=== PATIENT | male | born 1960 | race Caucasian/White ===

== ENCOUNTER 2017-08-15 11:53 | Inpatient (IN) | payer OTHER ==
[~2017-08-15] VITALS: Ht 175.3 cm; Wt 102.0 kg
[2017-08-15 11:55] VITALS: BP 163/72; PULSE 120; RESP 16; TEMP 99.8; O2SAT 98
--- NOTE | 2017-08-15 14:12 | PD ---
HPI Chief Complaint: Medical Clearance Time Seen by Provider: 13:43 Travel History International Travel<30 days: Yes Contact w/Intl Traveler<30days: Yes Name of Country Traveled to: [place] Traveled to known affect area: No History of Present Illness HPI 57 years old male complains of headache, body ache, abdominal pain, nausea vomiting, generalized malaise and weakness. Patient states that the symptoms started yesterday afternoon. Patient started with abdominal pain, nausea vomiting. Patient states the pain is cramping pain and sharp pain localized to left low quadrant of the abdomen. Patient denies any pain radiation. Patient denies any blood in the vomitus. Patient denies any diarrhea. Patient started having headache and generalized malaise and weakness since last night. Patient stated headache aching headache frontal headache and bitemporal area. Patient denies any visual change. Patient denies any neck pain. Patient states that it is hard to focus. Patient denies any chest pain or shortness of breath. Patient denies any dysuria or frequency. Patient denies any back pain. Patient states that he has mild intermittent headache in the past however is worse than usual. Patient states that is not the worse headache he has in his life. Patient also complains of infected lesion of right side of face for the past several days. PFSH Social History Tobacco Use: No Allergies-Medications (Allergen,Severity, Reaction): Coded Allergies: No Known Allergies (Unverified , 08/15/17) Reported Meds & Prescriptions Reported Meds & Active Scripts Active Reported Lisinopril 2.5 Mg Tab 2.5 Mg PO DAILY Review of Systems General / Constitutional: No: Fever Eyes: No: Visual changes HENT: Positive: Headaches Cardiovascular: No: Chest Pain or Discomfort Respiratory: No: Shortness of Breath Gastrointestinal: Positive: Nausea, Vomiting, Abdominal Pain Genitourinary: No: Dysuria Musculoskeletal: No: Pain Skin: No Rash Neurologic: No: Weakness Psychiatric: No: Depression Endocrine: No: Polydipsia Hematologic/Lymphatic: No: Easy Bruising Physical Exam Narrative GENERAL: Well-nourished, well-developed patient. SKIN: Focused skin assessment warm/dry. Patient has an area redness swelling tenderness right-sided cheek area. No induration noted. HEAD: Normocephalic. EYES: No scleral icterus. No injection or drainage. Pupils 2 mm equal reactive. NECK: Supple, trachea midline. No JVD or lymphadenopathy. No meningismus CARDIOVASCULAR: Regular rate and rhythm without murmurs, gallops, or rubs. RESPIRATORY: Breath sounds equal bilaterally. No accessory muscle use. GASTROINTESTINAL: Abdomen soft, nondistended. Patient has moderate tenderness on palpation left lower quadrant of the abdomen. No rebound tenderness. No mass. MUSCULOSKELETAL: No cyanosis, or edema. BACK: Nontender without obvious deformity. No CVA tenderness. Neurologic exam: Patient's awake and alert oriented 3. Patient moves all extremity well. No obvious focal neurological deficit. Data Data Last Documented VS Vital Signs Date Time Temp Pulse Resp B/P (MAP) Pulse Ox O2 Delivery O2 Flow Rate FiO2 08/15/17 14:30 98 08/15/17 11:55 99.8 120 16 Orders Orders Electrocardiogram (08/15/17 14:01) Complete Blood Count With Diff (08/15/17 14:01) Comprehensive Metabolic Panel (08/15/17 14:01) Creatine Kinase (Cpk) (08/15/17 14:01) Troponin I (08/15/17 14:01) Prothrombin Time / Inr (Pt) (08/15/17 14:01) Act Partial Throm Time (Ptt) (08/15/17 14:01) Blood Culture (08/15/17 14:01) C-Reactive Protein (Crp) (08/15/17 14:01) Urinalysis - C+S If Indicated (08/15/17 14:01) W[place]gren Sedimentation Rate (08/15/17 14:01) Thyroid Stimulating Hormone (08/15/17 14:01) Influenzae A/B Antigen (08/15/17 14:01) Chest, Single Ap (08/15/17 14:01) Ct Brain W/O Iv Contrast(Rout) (08/15/17 14:01) Iv Access Insert/Monitor (08/15/17 14:01) Ecg Monitoring (08/15/17 14:01) Oximetry (08/15/17 14:01) Lactic Acid (08/15/17 14:01) Sodium Chlor 0.9% 1000 Ml Inj (Ns 1000 M (08/15/17 14:15) Ondansetron Inj (Zofran Inj) (08/15/17 14:15) Ct Abd/Pel W Iv Contrast(Rout) (08/15/17 14:04) Morphine Inj (Morphine Inj) (08/15/17 14:30) Piperacil-Tazo 3.375 Gm Premix (Zosyn 3. (08/15/17 15:15) Ondansetron Inj (Zofran Inj) (08/15/17 16:30) Iohexol 350 Inj (Omnipaque 350 Inj) (08/15/17 16:45) Admit Order (Ed Use Only) (08/15/17 17:34) Labs Laboratory Tests Test 08/15/17 14:10 White Blood Count 7.3 TH/MM3 Red Blood Count 5.07 MIL/MM3 Hemoglobin 13.5 GM/DL Hematocrit 41.0 % Mean Corpuscular Volume 80.9 FL Mean Corpuscular Hemoglobin 26.7 PG Mean Corpuscular Hemoglobin Concent 33.0 % Red Cell Distribution Width 16.9 % Platelet Count 212 TH/MM3 Mean Platelet Volume 8.6 FL Neutrophils (%) (Auto) 91.1 % Lymphocytes (%) (Auto) 3.9 % Monocytes (%) (Auto) 4.5 % Eosinophils (%) (Auto) 0.2 % Basophils (%) (Auto) 0.3 % Neutrophils # (Auto) 6.6 TH/MM3 Lymphocytes # (Auto) 0.3 TH/MM3 Monocytes # (Auto) 0.3 TH/MM3 Eosinophils # (Auto) 0.0 TH/MM3 Basophils # (Auto) 0.0 TH/MM3 CBC Comment DIFF FINAL Differential Comment Erythrocyte Sedimentation Rate 37 mm/hr Prothrombin Time 10.2 SEC Prothromb Time International Ratio 1.0 RATIO Activated Partial Thromboplast Time 27.6 SEC Urine Color YELLOW Urine Turbidity HAZY Urine pH 5.0 Urine Specific [place] 1.030 Urine Protein 30 mg/dL Urine Glucose (UA) NEG mg/dL Urine Ketones 10 mg/dL Urine Occult Blood NEG Urine Nitrite NEG Urine Bilirubin NEG Urine Urobilinogen LESS THAN 2.0 MG/DL Urine Leukocyte Esterase NEG Urine RBC 1 /hpf Urine WBC 3 /hpf Urine Bacteria RARE /hpf Urine Mucus FEW /lpf Microscopic Urinalysis Comment CULT NOT INDICATED Blood Urea Nitrogen 25 MG/DL Creatinine 1.05 MG/DL Random Glucose 101 MG/DL Total Protein 8.2 GM/DL Albumin 4.1 GM/DL Calcium Level 9.1 MG/DL Alkaline Phosphatase 66 U/L Aspartate Amino Transf (AST/SGOT) 19 U/L Alanine Aminotransferase (ALT/SGPT) 23 U/L Total Bilirubin 0.4 MG/DL Sodium Level 136 MEQ/L Potassium Level 4.0 MEQ/L Chloride Level 102 MEQ/L Carbon Dioxide Level 27.4 MEQ/L Anion Gap 7 MEQ/L Estimat Glomerular Filtration Rate 73 ML/MIN Lactic Acid Level 1.0 mmol/L Total Creatine Kinase 186 U/L Troponin I LESS THAN 0.02 NG/ML C-Reactive Protein 7.90 MG/DL Thyroid Stimulating Hormone 3rd Gen 0.645 uIU/ML MDM Medical Decision Making Medical Screen Exam Complete: Yes Emergency Medical Condition: Yes Interpretation(s) 1506 p.m. CBC within normal limit. BUN 25. Cardiac enzymes are normal. C- reactive protein 7.9. Lactic acid 1.0. UA negative. Influenza AB antigen negative. 1619 p.m. Last Impressions Chest X-Ray 08/15/17 1401 Signed Impressions: Service Date/Time: Tuesday, August 15, 2017 14:30 - CONCLUSION: No acute cardiopulmonary disease identified. Pranav Yates MD 1619 p.m. Sedimentation rate 37. Differential Diagnosis Differential diagnosis including viral syndrome, migraine headache, tension headache, cluster headache, encephalitis, UTI, pyelonephritis, nephrolithiasis, diverticulitis, dehydration, electorally imbalance, sepsis. Narrative Course 57 years old male complains of headache, left upper quadrant abdominal pain, nausea vomiting, generalized malaise and weakness. Normal saline solution 1 L IV bolus. Zofran 4 mg IV. Vancomycin 1 g IV given. Zosyn 3.375 g IV given. I DO NOT see any evidence of meningitis or Gu[place] syndrome at this point Diagnosis Primary Impression: Facial cellulitis Additional Impression: Viral syndrome Scripts Mupirocin Topical (Bactroban Topical) 22 Gm Cream 1 APPLIC TOPICAL TID for Mgmt Bacterial Infection for 7 Days, #1 TUBE 0 Refills Prov: Marcos Davidson MD 08/16/17 Clindamycin (Clindamycin) 300 Mg Cap 600 MG PO Q8H for Infection for 7 Days, #42 CAP 0 Refills Prov: Marcos Davidson MD 08/16/17 Prince Jennings MD Aug 15, 2017 14:12
[2017-08-15] MEDS ORDERED: SODIUM CHLOR 0.9% 1000 ML INJ 1,000 ML IV ONE (14:15)
[2017-08-15] MEDS ORDERED: ONDANSETRON HCL 4 MG/2 ML VIAL IV PUSH ONE ×2 (14:15→16:30)
[2017-08-15 14:30] VITALS: O2SAT 98
[2017-08-15] MEDS ORDERED: LISI2.5T3 PO (14:30)
[2017-08-15] MEDS ORDERED: MORPHINE SULFATE 2 MG/ML INJ IV PUSH ONE ×2 (14:30→20:30)
[2017-08-15 14:37] LABS: AUTOMATED NEUTROPHIL # 6.6 TH/MM3 (1.8-7.7); BASOPHIL % 0.3 % (0.0-2.0); EOSINOPHIL % 0.2 % (0.0-4.0); HEMOGLOBIN 13.5 GM/DL (13.0-17.0); LYMPH % 3.9 % (9.0-44.0); LYMPHOCYTE # 0.3 TH/MM3 (1.0-4.8); MEAN CELL VOLUME 80.9 FL (80.0-100.0); MEAN CORPUSCULAR HEMOGLOBIN 26.7 PG (27.0-34.0); MEAN PLATELET VOLUME 8.6 FL (7.0-11.0); MONO % 4.5 % (0.0-8.0); MONOCYTE # 0.3 TH/MM3 (0-0.9); NEUT % 91.1 % (16.0-70.0); PLATELET COUNT 212 TH/MM3 (150-450); RED BLOOD COUNT 5.07 MIL/MM3 (4.50-5.90); RED CELL DISTRIBUTION WIDTH 16.9 % (11.6-17.2); WHITE BLOOD COUNT 7.3 TH/MM3 (4.0-11.0)
[2017-08-15 14:39] LABS: BACTERIA, URINE RARE /hpf; BILIRUBIN, URINE NEG (NEG); BLOOD, URINE NEG (NEG); GLUCOSE,URINE NEG (NEG); KETONE, URINE 10 mg/dL (NEG); MUCUS URINE FEW /lpf (OCC); NITRITE,URINE NEG (NEG); URINE COLOR YELLOW (YELLW/STRAW); URINE LEUKOCYTE ESTERASE NEG (NEG)
[2017-08-15 14:46] LABS: PROTHROMBIN TIME - PATIENT 10.2 SEC (9.8-11.6)
[2017-08-15 14:53] LABS: ALBUMIN 4.1 GM/DL (3.4-5.0); ALT (GPT) 23 U/L (12-78); AST (GOT) 19 U/L (15-37); BICARBONATE 27.4 MEQ/L (21.0-32.0); BLOOD UREA NITROGEN 25 MG/DL (7-18); CALCIUM 9.1 MG/DL (8.5-10.1); CHLORIDE 102 MEQ/L (98-107); CREATININE 1.05 MG/DL (0.60-1.30); GLOMERULAR FILTRATION RATE 73 ML/MIN (>89); GLUCOSE,RANDOM 101 MG/DL (74-106); SODIUM (NA) 136 MEQ/L (136-145)
[2017-08-15 15:03] LABS: ALKALINE PHOSPHATASE 66 U/L (45-117); TOTAL BILIRUBIN ADULT 0.4 MG/DL (0.2-1.0); TOTAL PROTEIN 8.2 GM/DL (6.4-8.2); TROPONIN I LESS THAN 0.02 NG/ML (0.02-0.05)
--- NOTE | 2017-08-15 15:10 | RADRPT ---
EXAM DATE/TIME: 08/15/2017 14:30 [facility] COMPARISON: No previous studies available for comparison. INDICATIONS : Short of breath MEDICAL HISTORY : Hypertension. SURGICAL HISTORY : None. ENCOUNTER: Initial ACUITY: 2 days PAIN SCORE: 0/10 LOCATION: Bilateral chest FINDINGS: Single AP view of the chest. The lungs are clear. Cardiomediastinal silhouette within normal limits. No evidence of pleural effusion or pneumothorax. CONCLUSION: No acute cardiopulmonary disease identified. Pranav Yates MD on August 15, 2017 at 15:08 Board Certified Radiologist. This report was verified electronically.
[2017-08-15] MEDS ORDERED: PIPERACIL-TAZO 3.375 GM PREMIX 50 ML IV ONE (15:15)
[2017-08-15] MEDS ORDERED: IOHEXOL 350 MG/ML 10 ML VIAL (for RAD DIAG) IVCONTRAST ONE (16:45)
--- NOTE | 2017-08-15 17:04 | RADRPT ---
EXAM DATE/TIME: 08/15/2017 16:29 [facility] COMPARISON: No previous studies available for comparison. INDICATIONS : Cephalgia today. RADIATION DOSE: 56.35 CTDIvol (mGy) MEDICAL HISTORY : Hypertension. SURGICAL HISTORY : None. ENCOUNTER: Initial ACUITY: 1 day PAIN SCALE: 8/10 LOCATION: Bilateral head TECHNIQUE: Multiple contiguous axial images were obtained of the head. Using automated exposure control and adj ustment of the mA and/or kV according to patient size, radiation dose was kept as low as reasonably a chievable to obtain optimal diagnostic quality images. DICOM format image data is available electro nically for review and comparison. FINDINGS: CEREBRUM: The ventricles are normal for age. No evidence of midline shift, mass lesion, hemorrhage or acute in farction. No extra-axial fluid collections are seen. POSTERIOR FOSSA: The cerebellum and brainstem are intact. The 4th ventricle is midline. The cerebellopontine angle i s unremarkable. EXTRACRANIAL: The visualized portion of the orbits is intact. SKULL: The calvaria is intact. No evidence of skull fracture. CONCLUSION: Negative noncontrast head CT. Sterling Tam MD on August 15, 2017 at 17:01 Board Certified Radiologist. This report was verified electronically.
--- NOTE | 2017-08-15 17:07 | RADRPT ---
EXAM DATE/TIME: 08/15/2017 16:33 [facility] COMPARISON: No previous studies available for comparison. INDICATIONS : Left lower abdomen pain today. IV CONTRAST: 85 cc Omnipaque 350 (iohexol) IV ORAL CONTRAST: No oral contrast ingested. RADIATION DOSE: 8.43 CTDIvol (mGy) MEDICAL HISTORY : Hypertension. SURGICAL HISTORY : None. ENCOUNTER: Initial ACUITY: 1 day PAIN SCALE: 7/10 LOCATION: Left lower quadrant TECHNIQUE: Volumetric scanning of the abdomen and pelvis was performed. Using automated exposure control and ad justment of the mA and/or kV according to patient size, radiation dose was kept as low as reasonably achievable to obtain optimal diagnostic quality images. DICOM format image data is available electro nically for review and comparison. FINDINGS: LOWER LUNGS: The visualized lower lungs are clear. LIVER: Homogeneous density without lesion. There is no dilation of the biliary tree. No calcified gallston es. SPLEEN: Normal size without lesion. PANCREAS: Within normal limits. KIDNEYS: Normal in size and shape. 2.9 cm right upper pole and 2.2 cm right lower pole cysts. There is no marly id mass, stone or hydronephrosis. ADRENAL GLANDS: Within normal limits. VASCULAR: There is no aortic aneurysm. BOWEL/MESENTERY: The stomach, small bowel, and colon demonstrate no acute abnormality. There is no free intraperitone al air or fluid. The appendix is well-visualized, normal. ABDOMINAL WALL: Within normal limits. RETROPERITONEUM: There is no lymphadenopathy. BLADDER: No wall thickening or mass. REPRODUCTIVE: Within normal limits. INGUINAL: There is no lymphadenopathy or hernia. MUSCULOSKELETAL: No acute bony abnormality demonstrated. CONCLUSION: No acute abnormality demonstrated. Benign appearing cysts of the right kidney. Sterling Tam MD on August 15, 2017 at 17:02 Board Certified Radiologist. This report was verified electronically.
[2017-08-15] MEDS ORDERED: SODIUM CHLOR 0.9% 1000 ML INJ 1,000 ML IV SCH (17:15)
[2017-08-15] MEDS ORDERED: NALOXONE HCL 0.4 MG/ML AMP IV PUSH PRN (17:45)
[2017-08-15] MEDS ORDERED: SODIUM CHLORIDE 0.9% FLUSH 10 ML FLUSH IV FLUSH PRN (17:45)
[2017-08-15] MEDS ORDERED: MAGNESIUM HYDROXIDE SUSP 30 ML CUP PO PRN (17:45)
[2017-08-15] MEDS ORDERED: LACTULOSE SYRUP 20 GM/30 ML CUP PO PRN (17:45)
[2017-08-15] MEDS ORDERED: SENNOSIDES 8.6 MG TAB PO PRN (17:45)
[2017-08-15] MEDS ORDERED: ONDANSETRON HCL 4 MG/2 ML VIAL IVP PRN (17:45)
[2017-08-15] MEDS ORDERED: BISACODYL 10 MG SUPP RECTAL PRN (17:45)
[2017-08-15] MEDS ORDERED: ACETAMINOPHEN 325 MG TAB PO PRN (17:45)
[2017-08-15] MEDS ORDERED: ENOXAPARIN SODIUM 40 MG/0.4 ML SYRINGE SQ SCH (18:00)
[2017-08-15] MEDS: VANCOMYCIN 1 GM/200 ML INJ 200 ML IV SCH (18:20)
[2017-08-15 20:00] VITALS: BP_SYST 121; BP_SYST 147; BP_DIAS 69; BP_DIAS 70; PULSE 115; RESP 20; TEMP 99.7; O2SAT 96
[2017-08-15] MEDS ORDERED: diphenhydrAMINE HCL 50 MG/ML VIAL IV PUSH ONE (20:30)
[2017-08-15] MEDS ORDERED: PROCHLORPERAZINE INJ 10 MG/2 ML VIAL IV PUSH ONE (20:30)
--- NOTE | 2017-08-15 20:36 | HHI.HP ---
[facility] Curtis Medrano M.D. Admission Diagnosis FACIAL CELLULITIS. WEAKNESS. VIRAL SYNDROME Diagnoses: Travel History International Travel<30 Days: Yes Contact w/Intl Traveler <30 Da: Yes Name of Country Traveled to: [place] Traveled to Known Affected Are: No Past Family Social History Allergies: Coded Allergies: No Known Allergies (Unverified , 08/15/17) Physical Exam Vital Signs Vital Signs Date Time Temp Pulse Resp B/P (MAP) Pulse Ox O2 Delivery O2 Flow Rate FiO2 08/15/17 18:47 08/15/17 14:30 98 08/15/17 11:55 99.8 120 16 163/03 [phone]) 03 Physical Exam TEMPLATE: GENERAL: This is a well-nourished, well-developed patient, in no apparent distress. SKIN: No rashes, ecchymoses or lesions. Cool and dry. HEAD: Atraumatic. Normocephalic. EYES: No scleral icterus. No injection or drainage. ENT: Nose without bleeding, purulent drainage. NECK: Trachea midline. No JVD or lymphadenopathy. CARDIOVASCULAR: Regular rate and rhythm without murmurs, gallops, or rubs. RESPIRATORY: Clear to auscultation. Breath sounds equal bilaterally. No wheezes , rales, or rhonchi. GASTROINTESTINAL: Abdomen soft, non-tender, nondistended. No guarding. MUSCULOSKELETAL: Extremities without clubbing, cyanosis, or edema. No calf tenderness. NEUROLOGICAL: Awake and alert. Motor and sensory grossly within normal limits. Normal speech. . Laboratory Laboratory Tests Test 08/15/17 14:10 White Blood Count 7.3 Red Blood Count 5.07 Hemoglobin 13.5 Hematocrit 41.0 Mean Corpuscular Volume 80.9 Mean Corpuscular Hemoglobin 26.7 Mean Corpuscular Hemoglobin Concent 33.0 Red Cell Distribution Width 16.9 Platelet Count 212 Mean Platelet Volume 8.6 Neutrophils (%) (Auto) 91.1 Lymphocytes (%) (Auto) 3.9 Monocytes (%) (Auto) 4.5 Eosinophils (%) (Auto) 0.2 Basophils (%) (Auto) 0.3 Neutrophils # (Auto) 6.6 Lymphocytes # (Auto) 0.3 Monocytes # (Auto) 0.3 Eosinophils # (Auto) 0.0 Basophils # (Auto) 0.0 CBC Comment DIFF FINAL Differential Comment Erythrocyte Sedimentation Rate 37 Prothrombin Time 10.2 Prothromb Time International Ratio 1.0 Activated Partial Thromboplast Time 27.6 Urine Color YELLOW Urine Turbidity HAZY Urine pH 5.0 Urine Specific [place] 1.030 Urine Protein 30 Urine Glucose (UA) NEG Urine Ketones 10 Urine Occult Blood NEG Urine Nitrite NEG Urine Bilirubin NEG Urine Urobilinogen LESS THAN 2.0 Urine Leukocyte Esterase NEG Urine RBC 1 Urine WBC 3 Urine Bacteria RARE Urine Mucus FEW Microscopic Urinalysis Comment CULT NOT INDICATED Blood Urea Nitrogen 25 Creatinine 1.05 Random Glucose 101 Total Protein 8.2 Albumin 4.1 Calcium Level 9.1 Alkaline Phosphatase 66 Aspartate Amino Transf (AST/SGOT) 19 Alanine Aminotransferase (ALT/SGPT) 23 Total Bilirubin 0.4 Sodium Level 136 Potassium Level 4.0 Chloride Level 102 Carbon Dioxide Level 27.4 Anion Gap 7 Estimat Glomerular Filtration Rate 73 Lactic Acid Level 1.0 Total Creatine Kinase 186 Troponin I LESS THAN 0.02 C-Reactive Protein 7.90 Thyroid Stimulating Hormone 3rd Gen 0.645 Date/Time Source Procedure Growth Status 08/15/17 14:10 Blood Peripheral Aerobic Blood Culture Pending Received 08/15/17 14:10 Blood Peripheral Anaerobic Blood Culture Pending Received 08/15/17 14:10 Nasal Washing Influenza Types A,B Antigen (PRETTY) - Final NEGATIVE FOR FLU A AND B ANTIGEN.... Complete Result Diagram: 08/15/17 1410 08/15/17 1410 Imaging Last Impressions Abdomen/Pelvis CT 08/15/17 1404 Signed Impressions: Service Date/Time: Tuesday, August 15, 2017 16:33 - CONCLUSION: No acute abnormality demonstrated. Benign appearing cysts of the right kidney. Sterling Tam MD Head CT 08/15/17 140 Signed Impressions: Service Date/Time: Tuesday, August 15, 2017 16:29 - CONCLUSION: Negative noncontrast head CT. Sterling Tam MD Chest X-Ray 08/15/17 140 Signed Impressions: Service Date/Time: Tuesday, August 15, 2017 14:30 - CONCLUSION: No acute cardiopulmonary disease identified. MD Jhony Naidu VTE Risk Assessment Caprini Risk Assessment Model Point Value = 1 Point Value = 2 Point Value = 3 Point Value = 5 Age 41-60 Minor surgery BMI > 25 kg/m2 Swollen legs Varicose veins or History of unexplained or recurrent spontaneous Oral contraceptives or hormone replacement Sepsis (< 1 month) Serious lung disease, including pneumonia (< 1 month) Abnormal pulmonary function Acute myocardial infarction Congestive heart failure (< 1 month) History of inflammatory bowel disease Medical patient at bed rest Age 61-74 Arthroscopic surgery Major open surgery (> 45 min) Laparoscopic surgery (> 45 min) Malignancy Confined to bed (> 72 hours) Immobilizing plaster cast Central venous access Age >= 75 History of VTE Family history of VTE Factor V Leiden Prothrombin [id number] Lupus anticoagulant Anticardiolipin antibodies Elevated serum homocysteine Heparin-induced thrombocytopenia Other congenital or acquired thrombophilia Stroke (< 1 month) Elective arthroplasty Hip, pelvis, or leg fracture Acute spinal cord injury (< 1 month) Prophylaxis Regimen Total Risk Factor Score Risk Level Prophylaxis Regimen 0-1 Low Early ambulation 2 Moderate Order ONE of the following: *Sequential Compression Device (SCD) *Heparin 5000 units SQ BID 3-4 Higher Order ONE of the following medications: *Heparin 5000 units SQ TID *Enoxaparin/Lovenox 40 mg SQ daily (WT < 150 kg, CrCl > 30 mL/min) *Enoxaparin/Lovenox 30 mg SQ daily (WT < 150 kg, CrCl > 10-29 mL/min) *Enoxaparin/Lovenox 30 mg SQ BID (WT < 150 kg, CrCl > 30 mL/min) AND/OR *Sequential Compression Device (SCD) 5 or more Highest Order ONE of the following medications: *Heparin 5000 units SQ TID (Preferred with Epidurals) *Enoxaparin/Lovenox 40 mg SQ daily (WT < 150 kg, CrCl > 30 mL/min) *Enoxaparin/Lovenox 30 mg SQ daily (WT < 150 kg, CrCl > 10-29 mL/min) *Enoxaparin/Lovenox 30 mg SQ BID (WT < 150 kg, CrCl > 30 mL/min) AND *Sequential Compression Device (SCD) Physician Certification Order for Inpatient Services The services are ordered in accordance with Medicare regulations or non- Medicare payer requirements, as applicable. In the case of services not specified as inpatient-only, they are appropriately provided as inpatient services in accordance with the 2-midnight benchmark. days is the estimated time the patient will need to remain in the hospital, assuming treatment plan goals are met and no additional complications. Magaly Mehta Aug 15, 2017 20:35
[2017-08-15] MEDS: SODIUM CHLOR 0.9% 1000 ML INJ 1,000 ML IV SCH (21:11)
[2017-08-15] MEDS: DOCUSATE SODIUM 50 MG/SENNA 8.6 MG TAB PO SCH (21:13)
[2017-08-15] MEDS: SODIUM CHLORIDE 0.9% FLUSH 10 ML FLUSH IV FLUSH SCH (21:15)
[2017-08-15] MEDS ORDERED: MORPHINE SULFATE 2 MG/ML INJ IV PUSH PRN (23:30)
--- NOTE | 2017-08-15 23:43 | HHI.HP ---
[facility] Curtis Medrano M.D. Admission Diagnosis FACIAL CELLULITIS. WEAKNESS. VIRAL SYNDROME Diagnoses: (1) Facial cellulitis (2) Viral syndrome Chief Complaint: Bodyaches, joint pain, abdominal pain, N/V Travel History International Travel<30 Days: Yes Contact w/Intl Traveler <30 Da: Yes Name of Country Traveled to: [place] Traveled to Known Affected Are: No History of Present Illness Mr. Resendiz is a 57 year-old male who travelled to [facility] and [facility] at the beginning of the month presented to the ER on 08/15/16 complaining of abdominal pain, nausea, vomiting, joint pain, headaches, weakness and malaise. He was found to have symptoms concerning for a viral syndrome, an infected facial wound, and was admitted to the hospital for management. The patient is seen in his hospital room. He tells me that his symptoms began abruptly yesterday 08/14 (Wednesday) at 4:30 p.m. with stomach pains and bloating. His symptoms persisted to include nausea with vomiting and he progressively developed body aches and joint pain. His biggest complaint at the time of the visit is severe headache (bitemporal and frontal) which he says he has had similar headaches in the past. He says the headache was relieved by IV morphine in the ED but he also vomited after receiving it. He denies photosensitivity. He denies hematemesis, diarrhea, bloody stools, or mucus in stools. He has a small lesion on his face that has been present for 3 days and has been getting more swollen and red. Chest x-ray, head CT and abd/pelvis CT are all negative for acute process. Review of Systems Except as stated in HPI: all other systems reviewed are Neg Past Family Social History Past Medical History Hypertension . Past Surgical History Eye surgery to correct strabismus at age 11 y/o . Reported Medications Reported Meds & Active Scripts Active Reported Lisinopril 2.5 Mg Tab 2.5 Mg PO DAILY . Allergies: Coded Allergies: No Known Allergies (Unverified , 08/15/17) Family History Denies any sick family contacts Denies family history of DM . Social History Tobacco: denies Alcohol: denies Illicit drugs: denies . Physical Exam Vital Signs Vital Signs Date Time Temp Pulse Resp B/P (MAP) Pulse Ox O2 Delivery O2 Flow Rate FiO2 08/15/17 20:00 99.7 115 20 147/70 (95) 96 08/15/17 18:47 08/15/17 14:30 98 08/15/17 11:55 99.8 120 16 163/72 (102) 98 Physical Exam GENERAL: This is a middle-aged male patient, complaining of headache and joint pain. SKIN: No rashes, ecchymoses. Cool and dry. Right upper outer aspect of lip with small wound with surrounding swelling and erythema, no induration noted. HEAD: Atraumatic. Normocephalic. EYES: Pupils equal round and reactive. No injection or drainage. ENT: Nose without bleeding, purulent drainage. Uvula midline. Airway patent. NECK: Trachea midline. No JVD. No nuchal rigidity. CARDIOVASCULAR: Regular rate and rhythm without murmurs, gallops, or rubs. RESPIRATORY: Clear to auscultation. Breath sounds equal bilaterally. No wheezes , rales, or rhonchi. GASTROINTESTINAL: Abdomen soft, non-tender, nondistended. No guarding. MUSCULOSKELETAL: Extremities without clubbing, cyanosis, or edema. No calf tenderness. NEUROLOGICAL: Awake and alert. Motor and sensory grossly within normal limits. Normal speech. No light sensitivity noted. . Laboratory Laboratory Tests Test 08/15/17 14:10 White Blood Count 7.3 Red Blood Count 5.07 Hemoglobin 13.5 Hematocrit 41.0 Mean Corpuscular Volume 80.9 Mean Corpuscular Hemoglobin 26.7 Mean Corpuscular Hemoglobin Concent 33.0 Red Cell Distribution Width 16.9 Platelet Count 212 Mean Platelet Volume 8.6 Neutrophils (%) (Auto) 91.1 Lymphocytes (%) (Auto) 3.9 Monocytes (%) (Auto) 4.5 Eosinophils (%) (Auto) 0.2 Basophils (%) (Auto) 0.3 Neutrophils # (Auto) 6.6 Lymphocytes # (Auto) 0.3 Monocytes # (Auto) 0.3 Eosinophils # (Auto) 0.0 Basophils # (Auto) 0.0 CBC Comment DIFF FINAL Differential Comment Erythrocyte Sedimentation Rate 37 Prothrombin Time 10.2 Prothromb Time International Ratio 1.0 Activated Partial Thromboplast Time 27.6 Urine Color YELLOW Urine Turbidity HAZY Urine pH 5.0 Urine Specific [place] 1.030 Urine Protein 30 Urine Glucose (UA) NEG Urine Ketones 10 Urine Occult Blood NEG Urine Nitrite NEG Urine Bilirubin NEG Urine Urobilinogen LESS THAN 2.0 Urine Leukocyte Esterase NEG Urine RBC 1 Urine WBC 3 Urine Bacteria RARE Urine Mucus FEW Microscopic Urinalysis Comment CULT NOT INDICATED Blood Urea Nitrogen 25 Creatinine 1.05 Random Glucose 101 Total Protein 8.2 Albumin 4.1 Calcium Level 9.1 Alkaline Phosphatase 66 Aspartate Amino Transf (AST/SGOT) 19 Alanine Aminotransferase (ALT/SGPT) 23 Total Bilirubin 0.4 Sodium Level 136 Potassium Level 4.0 Chloride Level 102 Carbon Dioxide Level 27.4 Anion Gap 7 Estimat Glomerular Filtration Rate 73 Lactic Acid Level 1.0 Total Creatine Kinase 186 Troponin I LESS THAN 0.02 C-Reactive Protein 7.90 Thyroid Stimulating Hormone 3rd Gen 0.645 Date/Time Source Procedure Growth Status 08/15/17 14:10 Blood Peripheral Aerobic Blood Culture Pending Received 08/15/17 14:10 Blood Peripheral Anaerobic Blood Culture Pending Received 08/15/17 14:10 Nasal Washing Influenza Types A,B Antigen (PRETTY) - Final NEGATIVE FOR FLU A AND B ANTIGEN.... Complete Result Diagram: 08/15/17 1410 08/15/17 1410 Imaging Last Impressions Abdomen/Pelvis CT 08/15/17 1404 Signed Impressions: Service Date/Time: Tuesday, August 15, 2017 16:33 - CONCLUSION: No acute abnormality demonstrated. Benign appearing cysts of the right kidney. Sterling Tam MD Head CT 08/15/17 140 Signed Impressions: Service Date/Time: Tuesday, August 15, 2017 16:29 - CONCLUSION: Negative noncontrast head CT. Sterling Tam MD Chest X-Ray 08/15/17 140 Signed Impressions: Service Date/Time: Tuesday, August 15, 2017 14:30 - CONCLUSION: No acute cardiopulmonary disease identified. Pranav Yates MD . Caprini VTE Risk Assessment Caprini VTE Risk Assessment: Mod/High Risk (score >= 2) Caprini Risk Assessment Model Point Value = 1 Point Value = 2 Point Value = 3 Point Value = 5 Age 41-60 Minor surgery BMI > 25 kg/m2 Swollen legs Varicose veins or History of unexplained or recurrent spontaneous Oral contraceptives or hormone replacement Sepsis (< 1 month) Serious lung disease, including pneumonia (< 1 month) Abnormal pulmonary function Acute myocardial infarction Congestive heart failure (< 1 month) History of inflammatory bowel disease Medical patient at bed rest Age 61-74 Arthroscopic surgery Major open surgery (> 45 min) Laparoscopic surgery (> 45 min) Malignancy Confined to bed (> 72 hours) Immobilizing plaster cast Central venous access Age >= 75 History of VTE Family history of VTE Factor V Leiden Prothrombin [id number] Lupus anticoagulant Anticardiolipin antibodies Elevated serum homocysteine Heparin-induced thrombocytopenia Other congenital or acquired thrombophilia Stroke (< 1 month) Elective arthroplasty Hip, pelvis, or leg fracture Acute spinal cord injury (< 1 month) Prophylaxis Regimen Total Risk Factor Score Risk Level Prophylaxis Regimen 0-1 Low Early ambulation 2 Moderate Order ONE of the following: *Sequential Compression Device (SCD) *Heparin 5000 units SQ BID 3-4 Higher Order ONE of the following medications: *Heparin 5000 units SQ TID *Enoxaparin/Lovenox 40 mg SQ daily (WT < 150 kg, CrCl > 30 mL/min) *Enoxaparin/Lovenox 30 mg SQ daily (WT < 150 kg, CrCl > 10-29 mL/min) *Enoxaparin/Lovenox 30 mg SQ BID (WT < 150 kg, CrCl > 30 mL/min) AND/OR *Sequential Compression Device (SCD) 5 or more Highest Order ONE of the following medications: *Heparin 5000 units SQ TID (Preferred with Epidurals) *Enoxaparin/Lovenox 40 mg SQ daily (WT < 150 kg, CrCl > 30 mL/min) *Enoxaparin/Lovenox 30 mg SQ daily (WT < 150 kg, CrCl > 10-29 mL/min) *Enoxaparin/Lovenox 30 mg SQ BID (WT < 150 kg, CrCl > 30 mL/min) AND *Sequential Compression Device (SCD) Assessment and Plan Problem List: (1) Facial cellulitis ICD Code: L03.211 - Cellulitis of face Status: Acute (2) Viral syndrome ICD Code: B34.9 - Viral infection, unspecified Status: Acute Assessment and Plan Mr. Resendiz is a 57 year-old male who travelled to [facility] and [facility] at the beginning of the month presented to the ER on 08/15/16 complaining of abdominal pain, nausea, vomiting, joint pain, headaches, weakness and malaise. He was found to have symptoms concerning for viral syndrome, an infected facial wound, and was admitted to the hospital for management. Facial Cellulitis Viral Syndrome - Temperature 99.8, Pulse 120, Lactic acid 1.0, ESR 37, and CRP 7.9 - does not meet sepsis criteria - Chest x-ray, head CT and abd/pelvis CT are all negative for acute process; Negative testing in ED for influenza reviewed; UA not c/w UTI - Antibiotics: Vancomycin/Zosyn IV - repeat CBC in a.m. and follow trends in blood counts - VS q4h and neurochecks q4h - [place] and IV morphine as needed for pain - await results of blood cultures - consider ID consultation if symptoms persist despite treatment Gastroenteritis - Zofran IV PRN nausea/vomiting - Abd/pelvis CT are all negative for acute process - Abdominal exam is benign Hypertension - resume home medication - monitor trends in BP readings and adjust treatment if indicated DVT prophylaxis - Lovenox 40 mg subq q24h Discussed Condition With Dr. Howard, RN, and patient . Physician Certification 2 Midnight Certification Type: Continued Stay Order for Inpatient Services The services are ordered in accordance with Medicare regulations or non- Medicare payer requirements, as applicable. In the case of services not specified as inpatient-only, they are appropriately provided as inpatient services in accordance with the 2-midnight benchmark. Estimated LOS (days): 3 days is the estimated time the patient will need to remain in the hospital, assuming treatment plan goals are met and no additional complications. Post-Hospital Plan: Home Magaly Mehta Aug 15, 2017 23:43
[2017-08-16] VITALS: BP 143/67; PULSE 100; RESP 18; TEMP 99.4; O2SAT 96
[2017-08-16] MEDS: PIPERACIL-TAZO 3.375 GM PREMIX 50 ML IV SCH ×3 (01:08→11:57)
[2017-08-16] MEDS: VANCOMYCIN 1 GM/200 ML INJ 200 ML IV SCH (04:09)
[2017-08-16] MEDS: SODIUM CHLOR 0.9% 1000 ML INJ 1,000 ML IV SCH ×2 (04:09→09:01)
[2017-08-16] MEDS: ACETAMINOPHEN/HYDROcodone 325 MG/5 MG TAB PO PRN ×2 (06:38→11:57)
[2017-08-16 07:35] LABS: AUTOMATED NEUTROPHIL # 3.9 TH/MM3 (1.8-7.7); BASOPHIL % 0.3 % (0.0-2.0); EOSINOPHIL # 0.1 TH/MM3 (0-0.4); HEMATOCRIT 36.4 % (39.0-51.0); HEMOGLOBIN 12.1 GM/DL (13.0-17.0); LYMPH % 13.8 % (9.0-44.0); LYMPHOCYTE # 0.7 TH/MM3 (1.0-4.8); MEAN CELL VOLUME 81.5 FL (80.0-100.0); MEAN CORPUSCULAR HEMOGLOBIN 27.1 PG (27.0-34.0); MEAN CORPUSCULAR HGB CONC 33.2 % (32.0-36.0); MEAN PLATELET VOLUME 9.1 FL (7.0-11.0); MONO % 10.1 % (0.0-8.0); MONOCYTE # 0.5 TH/MM3 (0-0.9); NEUT % 74.8 % (16.0-70.0); PLATELET COUNT 167 TH/MM3 (150-450); RED BLOOD COUNT 4.46 MIL/MM3 (4.50-5.90); RED CELL DISTRIBUTION WIDTH 16.6 % (11.6-17.2); WHITE BLOOD COUNT 5.2 TH/MM3 (4.0-11.0)
[2017-08-16 08:00] VITALS: BP 119/58; PULSE 95; RESP 18; TEMP 97.9; O2SAT 91
[2017-08-16 08:04] LABS: CALCIUM 8.4 MG/DL (8.5-10.1); CREATININE 0.94 MG/DL (0.60-1.30)
[2017-08-16] MEDS: DOCUSATE SODIUM 50 MG/SENNA 8.6 MG TAB PO SCH (08:55)
[2017-08-16] MEDS: SODIUM CHLORIDE 0.9% FLUSH 10 ML FLUSH IV FLUSH SCH (08:57)
[2017-08-16] MEDS ORDERED: LISINOPRIL 5 MG TAB PO SCH (09:00)
[2017-08-16 12:00] VITALS: BP 143/65; PULSE 98; RESP 18; TEMP 98.4; O2SAT 95
[2017-08-16 13:34] VITALS: O2SAT 94
[2017-08-16] MEDS ORDERED: CLIN300C5 PO (15:32)
--- NOTE | 2017-08-16 15:37 | HHI.DS ---
Discharge Summary Admission Date Aug 15, 2017 at 17:37 Discharge Date: Aug 16, 2017 Admitting Diagnosis FACIAL CELLULITIS. WEAKNESS. VIRAL SYNDROME (1) Facial cellulitis ICD Code: L03.211 - Cellulitis of face Status: Acute (2) Viral syndrome ICD Code: B34.9 - Viral infection, unspecified Status: Acute Procedures none Brief History - From Admission Mr. Resendiz is a 57 year-old male who travelled to [facility], [place] and [facility] at the beginning of the month presented to the ER on 08/15/16 complaining of abdominal pain, nausea, vomiting, joint pain, headaches, weakness and malaise. He was found to have symptoms concerning for a viral syndrome, an infected facial wound, and was admitted to the hospital for management. The patient is seen in his hospital room. He tells me that his symptoms began abruptly yesterday 08/14 (Wednesday) at 4:30 p.m. with stomach pains and bloating. His symptoms persisted to include nausea with vomiting and he progressively developed body aches and joint pain. His biggest complaint at the time of the visit is severe headache (bitemporal and frontal) which he says he has had similar headaches in the past. He says the headache was relieved by IV morphine in the ED but he also vomited after receiving it. He denies photosensitivity. He denies hematemesis, diarrhea, bloody stools, or mucus in stools. He has a small lesion on his face that has been present for 3 days and has been getting more swollen and red. Chest x-ray, head CT and abd/pelvis CT are all negative for acute process. CBC/BMP: 08/16/17 0639 08/16/17 0639 Significant Findings Laboratory Tests Test 08/15/17 14:10 08/16/17 06:39 Mean Corpuscular Hemoglobin 26.7 PG (27.0-34.0) Neutrophils (%) (Auto) 91.1 % (16.0-70.0) 74.8 % (16.0-70.0) Lymphocytes (%) (Auto) 3.9 % (9.0-44.0) Lymphocytes # (Auto) 0.3 TH/MM3 (1.0-4.8) 0.7 TH/MM3 (1.0-4.8) Erythrocyte Sedimentation Rate 37 mm/hr (0-20) Urine Turbidity HAZY (CLEAR) Urine Protein 30 mg/dL (NEG-TRACE) Urine Ketones 10 mg/dL (NEG) Urine Bacteria RARE /hpf (NONE) Urine Mucus FEW /lpf (OCC) Blood Urea Nitrogen 25 MG/DL (7-18) Estimat Glomerular Filtration Rate 73 ML/MIN (>89) 83 ML/MIN (>89) Troponin I LESS THAN 0.02 NG/ML C-Reactive Protein 7.90 MG/DL (0.00-0.30) Red Blood Count 4.46 MIL/MM3 (4.50-5.90) Hemoglobin 12.1 GM/DL (13.0-17.0) Hematocrit 36.4 % (39.0-51.0) Monocytes (%) (Auto) 10.1 % (0.0-8.0) Calcium Level 8.4 MG/DL (8.5-10.1) Hospital Course Mr. Resendiz was admitted overnight with GI cramping, muscle pain, joint pain and nausea/vomiting x 4 days. He also had a right facial cellulitis that was unrelated. Today he states that all of his GI and pain symptoms have resolved after receiving IVF for 24 hours. His face is less red. He wants to go home if possible. EXAM: 1x1.5cm red firm area to right of mouth, no fluctuance, no areas of drainage. Pt Condition on Discharge: Good Discharge Disposition: Discharge Home Discharge Time: <= 30 minutes Discharge Instructions DIET: Follow Instructions for: As Tolerated, No Restrictions Activities you can perform: Regular-No Restrictions Additional Information Symptoms related to primary reason for admission have disappeared, apparently his problem was dehydration from 4 days of vomiting. His facial cellulitis is not enough to qualify for a hospital admission, and will likely respond well to oral clindamycin and topical bactroban. Marcos Davidson MD Aug 16, 2017 15:37
[2017-08-16] MEDS ORDERED: MUPI2%T TOPICAL (15:38)
--- NOTE | 2017-08-16 18:21 | EKG ---
Date Performed: 08/15/2017 Time Performed: 17:58:41 PTAGE: 57 years EKG: SINUS TACHYCARDIA LEFT VENTRICULAR HYPERTROPHY AND ST-T CHANGE Consider anterolateral ische roddy. ABNORMAL ECG NO PREVIOUS TRACING DOCTOR: Jose Antonio Ott Interpretating Date/Time 08/16/2017 18:21:26
== END 2017-08-16 16:04 | disposition home or self-care (01) | DRG 603 ==
LOC: NEPD 11:53 → NEDA 17:37 → N07A 18:55
PROVIDERS: ADMIT Family Medicine; ATTEND Family Medicine
DX: L03.211 Cellulitis of face (principal); I10 Essential (primary) hypertension; B34.9 Viral infection, unspecified; E86.0 Dehydration
CPT/HCPCS: 70450; 71045; 74177; 80048; 80053; 81001; 82550; 83605; 84443; 84484; 85025; 85610; 85652; 85730; 86140; 87040; 87804; 93005; 96361; 96365; 96375; 96376; J0780; J1200; J1650; J2270; J2405; J2543; J3370; J7030; Q9967